=== PATIENT | female | born 1950 | race Caucasian/White ===

== ENCOUNTER 2020-05-18 10:42 | Emergency (ER) | payer MEDICARE, BC ==
[~2020-05-18] VITALS: Ht 154.9 cm; Wt 63.0 kg
[2020-05-18] MEDS ORDERED: normal saline 1000ML IV soln IV ONE (11:20)
--- NOTE | 2020-05-18 11:20 | NUR ---
PER EMS MULTIPLE ATTEMPTS FOR A PIV WITHOUT SUCCESS. RN ATTEMPTED X2 WITHOUT SUCCESS. LAB AT BEDSIDE, LAB OBTAINED
[2020-05-18 11:36] LABS: BASOPHILS # (AUTO) 0.1 X10'3 (0-0.2); BASOPHILS % (AUTO) 0.7 % (0-1); EOSINOPHILS # (AUTO) 0.1 X10'3 (0-0.9); HEMATOCRIT 38.2 % (35.0-45.0); HEMOGLOBIN 12.9 g/dl (12.0-16.0); LYMPHOCYTES # (AUTO) 2.4 X10'3 (1.1-4.8); LYMPHOCYTES % (AUTO) 19.2 % (21-51); MEAN CORPUSCULAR HEMOGLOBIN 32.1 PG (27.0-31.0); MEAN CORPUSCULAR HGB CONC 33.9 g/dL (33.0-36.5); MEAN CORPUSCULAR VOLUME 94.9 FL (78-98); MONOCYTES # (AUTO) 1.1 X10'3 (0-0.9); MONOCYTES % (AUTO) 8.9 % (2-12); NEUTROPHILS # (AUTO) 8.9 X10'3 (1.8-7.7); NEUTROPHILS % (AUTO) 70.2 % (42-75); PLATELET COUNT 338 X10'3 (140-440); RED BLOOD COUNT 4.02 X10'6 (4.20-5.60); WHITE BLOOD COUNT 12.7 X10'3 (4.5-11.0)
[2020-05-18 12:01] LABS: ALANINE AMINOTRANSFERASE 21 U/L (12-78); ALBUMIN 3.4 G/DL (3.4-5.0); ALBUMIN/GLOBULIN RATIO 0.9 (1.1-1.5); ALKALINE PHOSPHATASE 65 IU/L (46-116); ANION GAP 12 (8-16); ASPARTATE AMINO TRANSFERASE 26 U/L (10-37); BILIRUBIN,TOTAL 0.7 MG/DL (0.1-1.0); BLOOD UREA NITROGEN 15 MG/DL (7-18); CALCIUM 9.4 MG/DL (8.5-10.1); CHLORIDE 101 MMOL/L (99-107); GLUCOSE 96 MG/DL (70-104); SODIUM 135 MMOL/L (135-145); TOTAL PROTEIN 7.2 G/DL (6.4-8.2); eGFR 34 ML/MIN
[2020-05-18] MEDS ORDERED: morphine 4 MG/ML inj SYRINge IV PRN (12:20)
[2020-05-18] MEDS ORDERED: ondansetron/PF 4mg/2ml inj IV ONE (12:20)
[2020-05-18] MEDS ORDERED: AMOX-117 PO (12:39)
[2020-05-18] MEDS ORDERED: HYDR-4383 PO (12:39)
[2020-05-18] MEDS ORDERED: ONDA4TAB6 PO (12:39)
[2020-05-18] MEDS ORDERED: normal saline 1000ML IV soln IVB ONE (12:40)
[2020-05-18 13:37] VITALS: BP 135/68
== END 2020-05-18 13:43 | disposition home or self-care (01) ==
LOC: ER 10:42
DX: S06.0X0A Concussion without loss of consciousness, initial encounter (principal); K57.92 Diverticulitis of intestine, part unspecified, without perforation or abscess without bleeding; R42 Dizziness and giddiness; J45.909 Unspecified asthma, uncomplicated; K21.9 Gastro-esophageal reflux disease without esophagitis; Z86.711 Personal history of pulmonary embolism; Z79.01 Long term (current) use of anticoagulants; Z86.718 Personal history of other venous thrombosis and embolism; Z86.14 Personal history of Methicillin resistant Staphylococcus aureus infection; Z90.49 Acquired absence of other specified parts of digestive tract; Z90.710 Acquired absence of both cervix and uterus; Z98.890 Other specified postprocedural states; Z88.2 Allergy status to sulfonamides; Z88.8 Allergy status to other drugs, medicaments and biological substances; Z79.899 Other long term (current) drug therapy; W18.39XA Other fall on same level, initial encounter; Y93.89 Activity, other specified; Y92.89 Other specified places as the place of occurrence of the external cause; Y99.8 Other external cause status
CPT/HCPCS: 36415; 70450; 71045; 74176; 80053; 83605; 84145; 85025; 87040; 93005; 96374; 96375; 99285; J2270; J2405; J7030

== ENCOUNTER 2020-11-14 11:26 | Emergency (ER) | payer MEDICARE, BC ==
[~2020-11-14] VITALS: Ht 154.9 cm; Wt 61.4 kg
[~2020-11-14 11:26] MED LIST: HYDR-4383 PO; ONDA4TAB6 PO
[2020-11-14 11:55] VITALS: BP 154/91
[2020-11-14 12:06] LABS: BASOPHILS % (AUTO) 0.4 % (0-1); EOSINOPHILS # (AUTO) 0.1 X10'3 (0-0.9); EOSINOPHILS % (AUTO) 0.8 % (0-6); HEMOGLOBIN 13.5 g/dl (12.0-16.0); LYMPHOCYTES # (AUTO) 0.4 X10'3 (1.1-4.8); LYMPHOCYTES % (AUTO) 4.7 % (21-51); MEAN CORPUSCULAR HGB CONC 33.6 g/dL (33.0-36.5); MEAN CORPUSCULAR VOLUME 95.3 FL (78-98); MEAN PLATELET VOLUME 6.8 FL (7.4-10.4); MONOCYTES # (AUTO) 0.5 X10'3 (0-0.9); MONOCYTES % (AUTO) 6.3 % (2-12); NEUTROPHILS # (AUTO) 6.7 X10'3 (1.8-7.7); NEUTROPHILS % (AUTO) 87.8 % (42-75); PLATELET COUNT 312 X10'3 (140-440); RED CELL DISTRIBUTION WIDTH 12.8 % (11.5-14.5); WHITE BLOOD COUNT 7.6 X10'3 (4.5-11.0)
[2020-11-14 12:23] LABS: ALANINE AMINOTRANSFERASE 27 U/L (12-78); ALBUMIN 3.7 G/DL (3.4-5.0); ALKALINE PHOSPHATASE 68 IU/L (46-116); ANION GAP 16 (8-16); ASPARTATE AMINO TRANSFERASE 22 U/L (10-37); BLOOD UREA NITROGEN 17 MG/DL (7-18); BUN/CREATININE RATIO 10.8 (6.6-38.0); CALCIUM 9.2 MG/DL (8.5-10.1); CHLORIDE 100 MMOL/L (99-107); CREATININE 1.58 MG/DL (0.40-0.90); GLUCOSE 114 MG/DL (70-104); POTASSIUM 3.2 MMOL/L (3.5-5.1); SODIUM 137 MMOL/L (135-145); TOTAL CARBON DIOXIDE 21.1 MMOL/L (24-32); TOTAL PROTEIN 7.3 G/DL (6.4-8.2); eGFR 32 ML/MIN
[2020-11-14 12:26] LABS: LIPASE 167 U/L (73-393); TROPONIN I < 0.04 NG/ML (0.0-0.05)
[2020-11-14] MEDS ORDERED: normal saline 1000ML IV soln IVB ONE (12:45)
--- NOTE | 2020-11-14 13:00 | NUR ---
Received VO from Milana Grimaldo PA no need to start IV and no need for IV fluid bolus
[2020-11-14] MEDS ORDERED: potassium Cl 20 mEq SR tablet PO STA (13:04)
--- NOTE | 2020-11-14 13:10 | NUR ---
Pt instructed on clean catch urine for ua. Pt given UA cup and wipes and went walked with pt to bath room. Pt came out of bathroom and with empty ua cup, pt states "I'm so embarressed, I forgot. Pt walked with back to room and given water pitcher and currently drinking water, provider Milana BARBER update.
--- NOTE | 2020-11-14 14:00 | NUR ---
Pt requiring frequent reminders to drink fluids, currently intake approx 400ml between juice and water.
[2020-11-14 14:08] LABS: CLARITY,URINE CLEAR (Clear); COLOR,URINE YELLOW (Yellow); GLUCOSE, URINE NEGATIVE (Neg); KETONES,URINE NEGATIVE (Neg); LEUKOCYTE ESTERASE ,URINE NEGATIVE (Neg); NITRITES, URINE NEGATIVE (Neg); OCCULT BLOOD,URINE NEGATIVE (Neg); PH,URINE 7.5 (4.8-8.0); PROTEIN,URINE NEGATIVE (Neg); UROBILINOGEN,URINE 0.2 E.U/dL (0.2-1.0)
[2020-11-14 14:14] LABS: UA COLLECTION TYPE STRAIGHT CATH
[2020-11-14] MEDS ORDERED: acetaminophen 325mg tablet PO ONE (14:55)
== END 2020-11-14 15:48 | disposition home or self-care (01) ==
LOC: ER 11:26
DX: E86.0 Dehydration (principal); E87.6 Hypokalemia; R10.31 Right lower quadrant pain; E78.00 Pure hypercholesterolemia, unspecified; Z88.2 Allergy status to sulfonamides; Z88.8 Allergy status to other drugs, medicaments and biological substances; J45.909 Unspecified asthma, uncomplicated; K21.9 Gastro-esophageal reflux disease without esophagitis; Z86.14 Personal history of Methicillin resistant Staphylococcus aureus infection; Z87.01 Personal history of pneumonia (recurrent); Z90.49 Acquired absence of other specified parts of digestive tract; Z90.710 Acquired absence of both cervix and uterus
CPT/HCPCS: 36415; 74176; 80053; 81003; 83690; 84484; 85025; 85610; 99284